=== PATIENT | female | born 1960 | race African-American/Black ===

== ENCOUNTER 2021-05-28 04:18 | Emergency (ER) | payer OTHER ==
[~2021-05-28] VITALS: Ht 167.6 cm; Wt 55.0 kg
[~2021-05-28 04:18] MED LIST: ASPI-785; ATOR10TA; CLOP75TA4
[2021-05-28 05:00] VITALS: BP 151/88
[2021-05-28] MEDS ORDERED: ALBU6.7H9 INH (05:16)
[2021-05-28] MEDS ORDERED: PRED10TA23 MT (05:16)
== END 2021-05-28 05:00 | disposition home or self-care (01) ==
LOC: ER 04:18
DX: J44.1 Chronic obstructive pulmonary disease with (acute) exacerbation (principal); Z79.82 Long term (current) use of aspirin
CPT/HCPCS: 99283